=== PATIENT | female | born 1945 | race Caucasian/White ===

== ENCOUNTER 2017-05-13 06:26 | Day surgery (SDC) | payer MEDICARE ==
[~2017-05-13] VITALS: Ht 177.8 cm; Wt 99.8 kg
[~2017-05-13 06:26] MED LIST: BL ASPIRIN325 MG PO; LEVOTHYROXIN150 MC1 PO; LIOTHYRONINE5 MCG PO; MULTIVITAMI1 PO
[2017-05-13 09:00] VITALS: BP 137/71
== END 2017-05-13 09:13 | disposition home or self-care (01) ==
LOC: ENDO 06:26 → ORM 11:15
PROVIDERS: ATTEND Internal Medicine Gastroenterology
PROC: 0DJD8ZZ Inspection of Lower Intestinal Tract, Via Natural or Artificial Opening Endoscopic (ICD-10-PCS; principal; 2017-05-13)
DX: K59.00 Constipation, unspecified (principal); R14.0 Abdominal distension (gaseous); K64.4 Residual hemorrhoidal skin tags; K57.30 Diverticulosis of large intestine without perforation or abscess without bleeding; Z85.850 Personal history of malignant neoplasm of thyroid; Z85.3 Personal history of malignant neoplasm of breast